=== PATIENT | male | born 1960 | race Caucasian/White ===

== ENCOUNTER 2016-08-11 07:02 | Day surgery (SDC) | payer BC ==
[~2016-08-11] VITALS: Ht 177.8 cm; Wt 80.0 kg
[2016-08-11] MEDS ORDERED: WARFARIN (07:47)
[2016-08-11 07:49] VITALS: Ht 177.8 cm; Wt 80.0 kg
[2016-08-11 08:10] VITALS: BP 103/62; PULSE 63; RESP 18
[2016-08-11] MEDS ORDERED: FENTAnyl 50 MCG/ML VIAL ONE (09:12)
[2016-08-11] MEDS ORDERED: MIDAZOLAM 1 MG/ML 2 ML INJ ONE ×3 (09:13)
[2016-08-11 09:33] VITALS: BP 97/55; PULSE 56; RESP 14
--- NOTE | 2016-08-11 11:42 | GILP ---
DATE OF PROCEDURE: 08/11/2016 NAME OF PROCEDURES: 1. Esophagogastroduodenoscopy and biopsy. 2. Colonoscopy. SURGEON: Shania Desai MD. PREOPERATIVE DIAGNOSES: 1. Elevated CEA level. 2. History of colon polyps. POSTOPERATIVE DIAGNOSES: 1. Hiatal hernia. 2. Gastroesophageal reflux disease. 3. Gastritis with erosions. 4. Gastric mucosal biopsies were taken for Helicobacter pylori test. 5. Colonoscopy all the way to the cecum. 6. Internal hemorrhoids. 7. No colon neoplasm was identified. INDICATION FOR THE PROCEDURE: Mr. Vaughn Faith is a 56-year-old male patient who was noted to partida ve elevated CEA level. The patient also had history of colon polyps. The patient was scheduled for endoscopy and colonoscopy to rule out any gastrointestinal tract neoplasm. The procedures and possible complications were well explained to the patient, he understood and cons ented to the procedure. DESCRIPTION OF PROCEDURE: Under the influence of fentanyl and Versed, the gastroscope was carefully introduced into the esophagus and under direct vision, it was advanced to the stomach and through t he pylorus into the duodenal bulb and descending duodenum. FINDINGS: ESOPHAGUS: The patient had hiatal hernia and gastroesophageal reflux disease. STOMACH: He had gastritis with erosions. Gastric mucosal biopsies were taken for H. pylori test. DUODENUM: Normal. The colonoscope was carefully introduced in the rectum and under direct vision, it was advanced all the way to the cecum. FINDINGS: The patient had internal hemorrhoids. No colon neoplasm was identified. He tolerated the procedures very well and there was no complication from the procedures. At the end of the procedures, he was awake with stable vital signs and he was discharged home to the care of h is family. IMPRESSION: 1. Hiatal hernia. 2. Gastroesophageal reflux disease. 3. Gastritis with erosions. 4. Gastric mucosal biopsies were taken for Helicobacter pylori test. 5. Colonoscopy all the way to the cecum. 6. Internal hemorrhoids. 7. No colon neoplasm was identified. PLAN: Next screening colonoscopy in 10 years. Dictated By: SHANIA WARE/SHARON Conf#: [id number] DID#: [id number]
== END 2016-08-11 11:39 | disposition home or self-care (01) ==
LOC: GIL 07:02
PROVIDERS: ATTEND Internal Medicine Gastroenterology
DX: K44.9 Diaphragmatic hernia without obstruction or gangrene (principal); K21.9 Gastro-esophageal reflux disease without esophagitis; K64.8 Other hemorrhoids; Z86.010 Personal history of colon polyps; K29.60 Other gastritis without bleeding; Z86.718 Personal history of other venous thrombosis and embolism
CPT/HCPCS: 43239; 45378; 87081; J2250; J3010

== ENCOUNTER 2017-08-10 10:37 | Emergency (ER) | END 2017-08-10 13:41 | disposition home or self-care (01) ==